=== PATIENT | male | born 1990 | race African-American/Black ===

== ENCOUNTER → 2021-12-31 | Outpatient (CLI) | payer OTHER ==
--- NOTE | 2022-01-01 11:43 | RAD ---
Study: XR THORACOLUMBAR Indication: Back pain. Comparison: None. Findings: 5 nonrib-bearing lumbar vertebral elements. Dextrocurvature centered at the thoracolumbar junction. Ankylosis across the sacroiliac joints and asymmetric flowing syndesmophytes seen along portions of t he lumbar spine. Vertebral body and disc space height is maintained. No listhesis or advanced facet a rthrosis. Impression: 1. Dextrocurvature centered at the thoracolumbar junction. 2. Ankylosis across the SI joints and flowing syndesmophytes best seen along the lumbar spine which a re asymmetric. Correlate for any known history of a seronegative spondyloarthropathy such as ankylosi ng spondylitis. Electronically signed by: MARTHA BARNEY MD (12/31/2021 4:43 PM) [id number]
== END ==
LOC: RAD 11:38
PROVIDERS: ATTEND Physician Assistant Medical
DX: M43.8X5 Other specified deforming dorsopathies, thoracolumbar region (principal); M43.28 Fusion of spine, sacral and sacrococcygeal region
CPT/HCPCS: 72080